=== PATIENT | female | born 1995 | race American Indian/Alaskan Native ===

== ENCOUNTER 2017-06-24 04:54 | Emergency (ER) | payer MEDICAID, OTHER ==
--- NOTE | 2017-06-24 05:45 | C.PDOC ---
History Of Present Illness 21 y/o female brought to Ed by EMS for psych evaluation. Parents called EMS because patient has not slept in 5 days and is very angry with a flight of ideas. As per parents patient talks by herself in her room and has decreased appetite. Patient had surgery on 06/08/17. No physical complaints at this time. Time Seen by Provider: 06/24/17 05:17 Chief Complaint (Nursing): Psychiatric Evaluation History Per: EMS, Family Onset/Duration Of Symptoms: Days Current Symptoms Are (Timing): Still Present Suicide/Self Injury Attempted (Context): None Past Medical History Reviewed: Historical Data, Nursing Documentation, Vital Signs Vital Signs: Last Vital Signs Temp 97.9 F 06/24/17 05:09 Pulse 100 H 06/24/17 05:09 Resp 18 06/24/17 05:09 BP 150/100 H 06/24/17 05:09 Pulse Ox 97 06/24/17 05:50 Family History: States: No Known Family Hx - Social History Hx Alcohol Use: Yes Hx Substance Use: No - Immunization History Hx Tetanus Toxoid Vaccination: No Hx Influenza Vaccination: No Hx Pneumococcal Vaccination: No Review Of Systems Review Of Systems: ROS cannot be obtained secondary to pt's inabilty to answer questions. Physical Exam - Physical Exam Appears: Combative, Agitated Skin: Warm Head: Normacephalic Oral Mucosa: Moist Neurological/Psych: Oriented x3 ED Course And Treatment - Laboratory Results Result Diagrams: 06/24/17 05:57 06/24/17 05:57 O2 Sat by Pulse Oximetry: 97 (ra) Pulse Ox Interpretation: Normal ED OBSERVATION Date of observation admission: 06/24/17 Time of observation admission: 05:49 - Observation admission statement Patient is being placed in observation because:: psychosis - Goals of Observation Goals of observation are:: crisis eval - Progress Note Progress Note: 06/24/17 05:49 vitals stable Disposition - Disposition Referrals: Non [facility] Provider, [Primary Care Provider] - Disposition Time: 07:00 Condition: FAIR Forms: [facility] (Frisian) - Clinical Impression Clinical Impression: Psychosis - Scribe Statement The provider has reviewed the documentation as recorded by the Melonieibgrecia Kang All medical record entries made by the Scribe were at my direction and personally dictated by me. I have reviewed the chart and agree that the record accurately reflects my personal performance of the history, physical exam, medical decision making, and the department course for this patient. I have also personally directed, reviewed, and agree with the discharge instructions and disposition. Physician Patient Turnover Patient Signed Over To: Bairon Rivas Handoff Comments: pending labs, crisis eval and disposition
[2017-06-24 06:02] LABS: BASO # 0.1 K/uL (0.0-0.2); EOS # 0.1 K/uL (0.0-0.7); HEMATOCRIT 39.3 % (34.0-47.0); LYMPH # 1.8 K/uL (1.0-4.3); LYMPH % 23.9 % (20.0-40.0); MEAN CELL VOLUME 88.4 fL (81.0-99.0); MEAN CORPUSCULAR HEMOGLOBIN 29.4 pg (27.0-31.0); MEAN CORPUSCULAR HGB CONC 33.2 g/dL (33.0-37.0); MEAN PLATELET VOLUME 8.6 fL (7.2-11.7); MONO # 0.7 K/uL (0.0-0.8); MONO % 9.5 % (0.0-10.0); RED CELL DISTRIBUTION WIDTH 13.9 % (11.5-14.5); WHITE BLOOD COUNT 7.6 K/uL (4.8-10.8)
[2017-06-24 06:12] LABS: CHLORIDE 98 mmol/L (98-107); POTASSIUM 4.3 mmol/L (3.6-5.2); SODIUM 141 mmol/L (132-148)
[2017-06-24 06:14] LABS: ALB/GLOB RATIO 1.1 (1.0-2.1); ALKALINE PHOSPHATASE 85 U/L (38-126); AST/SGOT 33 U/L (14-36); BILIRUBIN,TOTAL 0.7 mg/dL (0.2-1.3); BLOOD UREA NITROGEN 10 mg/dL (7-17); CARBON DIOXIDE 23 mmol/L (22-30); GFR AFRICAN-AMERICAN > 60; TOTAL PROTEIN 8.3 g/dL (6.3-8.3)
[2017-06-24 06:15] LABS: ALCOHOL SERUM < 10 mg/dl (0-10); ALT/SGPT 33 U/L (9-52); CALCIUM 9.4 mg/dl (8.6-10.4); GLUCOSE,RANDOM 107 mg/dL (65-105)
[2017-06-24 10:38] LABS: URINE BACTERIA RARE (<OCC); URINE BILIRUBIN NEGATIVE (NEGATIVE); URINE BLOOD 3+ (NEGATIVE); URINE COLOR Straw (YELLOW); URINE GLUCOSE (UA) NORMAL (Normal); URINE KETONE 1+ mg/dL (NEGATIVE); URINE LEUKOCYTE ESTERASE NEG Leu/uL (Negative); URINE PROTEIN NEGATIVE (NEGATIVE); URINE UROBILINOGEN NORMAL mg/dL (0.2-1.0)
[2017-06-24 10:45] LABS: RBC URINE 9 /hpf (0-3)
--- NOTE | 2017-06-24 12:34 | PCM.PSYCH ---
<Jewel Fregoso Cameron - Last Filed: 06/24/17 21:05> Initial Psychiatric Evaluation - Initial Psychiatric Evaluation Current Medications: Active Medications Generic Name Dose Route Start Last Admin Trade Name Vijay PRN Reason Stop Dose Admin Aripiprazole 10 mg 06/24/17 12:45 06/24/17 14:47 Abilify PO 10 mg DAILY TEE Administration Haloperidol 5 mg 06/24/17 12:36 Haldol PO Q1H PRN agitation max 4x/24h Lorazepam 1 mg 06/24/17 12:36 Ativan PO Q2H PRN severe agitation max 6x/24h Past Psychiatric History - Past Psychiatric History Pertinent Medical Hx (Current Medical&Sleep Prob, Allergies): Allergies Allergy/AdvReac Type Severity Reaction Status Date / Time No Known Allergies Allergy Unverified 06/24/17 05:09 No Known Home Med 06/24/17 <Kyler Simpson - Last Filed: 06/24/17 22:11> Initial Psychiatric Evaluation - Initial Psychiatric Evaluation Chief Complaint (in patient's own words): "Nothing, I can't talk right now!" History of Present Illness and Precipitating Events: The pt is seen, chart reviewed, case discussed. Consultation was requested for her manic/psychotic bhv. 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 She is a very poor historian and uncooperative. She keeps saying unrelated and irrelevant things, such as Aaron Avila's (by suicide this week), followed by other things. According to her family: "Pt had breast reduction surgery and cosmetic nose surgery approximately 2wks ago; Surgery was successful; Pt suffered no post surgical pain and, thus, was not given any pain medication; Approximately one week following above surgery, Pt began to feel "emotionally high", stating: "I' m a new person;" I feel good"; Pt then began to have conflicts with her co- workers, whom she desrcibed as "so evil"; Pt has not slept for at least one week ; Pt then began to exhibit symptoms of "talking too much", "talking different things", believes "people in the streets want to kill her", and is afraid she will ; Pt also has not eaten for several days; Pt has not been suicidal/ homicidal nor aggressive; Pt recently graduated from college and is scheduled to start grad school November 2017; Pt has no prior psychiatric hx No known medical conditions Past Psychiatric History - Past Psychiatric History Previous Treatment History: None Pertinent Medical Hx (Current Medical&Sleep Prob, Allergies): Allergies Allergy/AdvReac Type Severity Reaction Status Date / Time No Known Allergies Allergy Unverified 06/24/17 05:09 No Known Home Med 06/24/17 Review of Systems - Psychiatric Psychiatric: Abnormal Sleep Pattern, Behavioral Changes, Irritability, Paranoia. absent: Homicidal Ideation, Suicidal Ideation Mental Status Examination - Personal Presentation Personal Presentation: Looks older than stated age - Affect Affect: Constricted - Motor Activity Motor Activity: Psychomotor Agitation - Reliability in Providing Information Reliability in Providing Information: Poor, due to alteration in thoughts, Poor , due to altered mood - Speech Speech: Disorganized - Mood Mood: Other (anfry) - Formal Thought Process Formal Thought Process: Delusions, Paranoia, Loosening of associations, Circumstantial - Cognitive Functions Orientation: Person, Place, Time Sensorium: Drowsy Attention/Concentration: Easily distracted Abstract Thinking: [place] Estimate of Intelligence: Average Judgement: Imparied, as evidence by: Poor judgement Memory: Recent impaired, as evidence by: Inability to recall events of the day, Remote impaired as evidenced by: Inability to recall sig life events - Risk Risk: Diminished functioning - Strength & Assets Inventory Strength & Assets Inventory: Family support - Limitations Limitations: Other DSM 5 DX - DSM 5 DSM 5 Diagnosis: Bipolar 1 disorder - manic, severe r/o Mood disorder due to unspecified condition, with manic features - Recommended/Plan of Treatment Treatment Recommendations and Plan of Treatment: Abilify 10 mg for manic and psychotic sxs Dose will be increased later Seroquel 50-100 mg HS for insomnia Screening by [facility] [place] as she is a danger to self and others 1:1 32 min
--- NOTE | 2017-06-25 09:56 | RAD ---
HISTORY: COMPARISON: No prior. TECHNIQUE: Chest PA and lateral FINDINGS: LINES AND TUBES: None. LUNG AND PLEURA: The lungs are well inflated and clear. There are no pleural effusions or pneumothorax. HEART AND MEDIASTINUM: The heart is not enlarged. The hilar and mediastinal contours are within normal limits. SKELETAL STRUCTURES: The bony structures are within normal limits for the patient's age. VISUALIZED UPPER ABDOMEN: Normal. OTHER FINDINGS: None. IMPRESSION: No active pulmonary disease.
[2017-06-25 11:41] VITALS: RESP 18
[2017-06-25 18:58] VITALS: O2SAT 99
[2017-06-25 21:53] VITALS: BP 119/87; PULSE 90; TEMP 98.4
--- NOTE | 2017-06-27 14:30 | CARD ---
APPROVED REPORT EKG Measurement Heart [id number] <Conclusion> Normal sinus rhythm Rightward axis Borderline ECG
== END 2017-06-25 22:30 | disposition short-term general hospital (02) ==
LOC: C.ER 04:54 → SUPCPDRO 04:54 → C.ER 06-25 22:30
DX: F29 Unspecified psychosis not due to a substance or known physiological condition (principal)